=== PATIENT | female | born 1950 | race Caucasian/White ===

== ENCOUNTER 2019-11-12 20:52 | Inpatient (IN) | payer MEDICARE ==
[~2019-11-12] VITALS: Ht 152.4 cm; Wt 61.2 kg
[~2019-11-12 20:52] MED LIST: CLON0.252 PO; FOLI1TAB16 PO; MULT1CAP34 PO; THIA100T74 PO
[2019-11-12 22:37] VITALS: BP 97/58
[2019-11-12 23:00] VITALS: BP 97/88
--- NOTE | 2019-11-12 23:00 | NUR ---
WOOD MODEL MAKERHYDRATE THICKENER OPERATOR NOTES RECEIVED PATIENT DIRECT ADMIT FROM [facility], ALERT AND ORIENTED X 1. VERBALLY RESPONSIVE, CONFUSED AND UNCOOPERATIVE. BREATHING REGULAR AND UNLABORED ON ROOM AIR. RIGHT WRIST G22 IV LINE INTACT AND PATENT, FLUSHING WELL WITH NO BLEEDING OR S/S OF INFILTRATION NOTED. ATTACHED TO AMMONIA REFRIGERATION TECHNICIAN WITH NSR WITH PAC'S AT 92bpm. BODY ASSESSMENT DONE, SEEN WITH SACRAL REDNESS, RIGHT FOREHEAD LACERATION WITH STITCHES, MULTIPLE SCABS ON LEFT UPPER AND LOWER EXTREMITIES, DRY SCABS AND SKIN GROWTH ON UPPER BACK. PHOTO TAKEN, ATTACHED TO CHART. VITAL SIGNS AND BELONGINGS CHECKED BY TECHNICAL DELIVERY MANAGER. NO S/S OF PAIN/DISCOMFORT NOTED AT THIS TIME. BED LOW AND LOCKED ON SEMI FOWLERS POSITION. CALL LIGHT IN REACH. WILL CONTINUE TO MONITOR.
[2019-11-12] MEDS ORDERED: LORAZEPAM INJ 2 MG/ML VIAL IV PRN (23:30)
[2019-11-12] MEDS ORDERED: ONDANSETRON HCL/PF 4 MG/2 ML VIAL IVP PRN (23:30)
[2019-11-12] MEDS ORDERED: TEMAZEPAM 15 MG CAPSULE PO PRN (23:30)
[2019-11-12] MEDS ORDERED: MAGNESIUM HYDROXIDE 30 ML UDC PO PRN (23:30)
[2019-11-12] MEDS ORDERED: Z GUARD REMEDY 2 OZ OINT TP PRN (23:30)
[2019-11-12] MEDS ORDERED: MAG HYDROX/AL HYDROX/SIMETH 30 ML UDC PO PRN (23:30)
[2019-11-12] MEDS ORDERED: Thiamine 100 MG in IV D5W 50 ML IV SCH (23:30)
[2019-11-12] MEDS ORDERED: ACETAMINOPHEN 325 MG TABLET PO PRN (23:30)
[2019-11-12] MEDS ORDERED: LEVETIRACETAM (500MG) 500 MG in IV NS 0.9% 100 ML IV SCH (23:30)
[2019-11-12] MEDS ORDERED: Thiamine 100 MG/ML VIAL ONE (23:33)
[2019-11-12] MEDS ORDERED: LEVETIRACETAM (500MG) 500 MG/5 ML VIAL IV ONE (23:34)
[2019-11-12] MEDS: IV NS 0.9% 1,000 ML IV PRN (23:40)
[2019-11-13] VITALS: BP_SYST 114; BP_SYST 125; BP_DIAS 65; BP_DIAS 66; BP_DIAS 68
--- NOTE | 2019-11-13 02:00 | NUR ---
SUBSCRIPTION AGENT NOTES PER NEW PROTOCOL PATIENT NEEDS TO BE RULED OUT FOR COVID19. ARABELLA GALLOWAY NOTIFIED WITH ORDERS TO DO COVID PCR SWAB AND TRANSFER PATIENT TO [facility], NOTED AND CARRIED OUT.
--- NOTE | 2019-11-13 02:45 | NUR ---
COLLECTIONS PROFESSIONAL NOTES MRSA AND COVID19 SWAB DONE, PICKED UP BY DETECTIVE [facility]
--- NOTE | 2019-11-13 03:10 | NUR ---
DECAL TRANSFERRER NOTES PATIENT TRANSFERRED TO [facility] ROOM 104 REPORT GIVEN TO HIWOT GARCIA AT [facility]. PATIENT ALERT AND ORIENTED X 1. AFEBRILE WITH NO S/S OF DISTRESS OBSERVED. TRANSFERRED VIA ACLS.
--- NOTE | 2019-11-13 03:15 | NUR ---
RECEIVED BEDSIDE REPORT. PATIENT NOT SHOWING ANY SIGNS OF ANY DISTRESS. ON ROOM AIR SATURATING AT 95% WITH NO COMPLIANT OF ANY SOB. PATIENT IS ALERT TO SELF AND CAN ONLY RECALL THAT SHE IS IN THE HOSPITAL. LACERATION ON FOREHEAD INTACT WITH STITCHING AND NO SIGNS OF ANY BLEEDING. PATIENT HAS RT WRIST @22 GAUGE PATENT. ALL SAFETY PRECAUTIONS APPLIED, CALL LIGHT WITHIN REACH, AND SEIZURE PRECAUTIONS. WILL CONTINUE TO MONITOR PATIENT.
[2019-11-13 04:00] VITALS: BP 120/77
[2019-11-13 07:27] LABS: BASOPHILS % (AUTO) 0.4 % (0.0-2.0); HEMATOCRIT 42 % (33-45); HEMOGLOBIN 14.2 g/dL (11.5-14.8); LYMPHOCYTES # (AUTO) 1.5 /CMM (0.8-4.8); LYMPHOCYTES % (AUTO) 20.3 % (20.0-44.0); MEAN CORPUSCULAR HGB CONC 34 g/dl (31.0-36.0); MEAN CORPUSCULAR VOLUME 94 fL (82-100); MONOCYTES # (AUTO) 0.8 /CMM (0.1-1.30); MONOCYTES % (AUTO) 10.9 % (2.0-12.0); NEUTROPHILS # (AUTO) 5.1 /CMM (1.8-8.9); NEUTROPHILS % (AUTO) 68.4 % (43.0-81.0); PLATELET COUNT (AUTO) 229 /CMM (150-450); WHITE BLOOD COUNT (AUTO) 7.4 K/uL (4.3-11.0)
[2019-11-13 07:29] LABS: CALCIUM, SERUM 8.8 mg/dL (8.5-10.1); CREATININE 0.5 mg/dL (0.6-1.3); PHOSPHORUS 2.8 mg/dL (2.5-4.9); POTASSIUM 3.1 mmol/L (3.5-5.1)
[2019-11-13 07:34] LABS: THYROID STIMULATING HORMONE 1.153 uIU/mL (0.358-3.74)
[2019-11-13] MEDS: PANTOPRAZOLE 40 MG TABLET.DR PO SCH (07:35)
--- NOTE | 2019-11-13 07:54 | NUR ---
[facility] RN NOTES RECEIVED PT IS SLEEPING IN BED. ALERT AND ORIENTED X2. NO SHOWING ANY DISTRESS. R WRIST #22 NS @75 ML/HR IS RUNNING WELL AND INTACT. LACERATION ON FOREHEAD IS INTACT WITH STITCHING AND NO SIGN OF BLEEDING ALL SAFETY PRECAUTIONS ARE IMPLEMENTED. BED IS IN THE LOWEST POSITION AND RAILS ARE UP X2. CALL LIGHT WITHIN THE REACH. WILL CONTINUE TO MONITOR.
--- NOTE | 2019-11-13 07:58 | NUR ---
[facility] RN NOTES PT'S POTASSIUM LEVEL IS DROPPING FROM 3.2 11/12/19 TO 3/ INFORMED DR JAVIER OGDEN. WILL FOLLOW UP IF ANY ORDER NEED IT.
[2019-11-13 08:00] VITALS: BP 108/69
[2019-11-13 08:46] LABS: MAGNESIUM 2.1 mg/dL (1.8-2.4)
[2019-11-13] MEDS ORDERED: LEVE500T9 PO (09:37)
[2019-11-13] MEDS ORDERED: MULT-447 PO (09:37)
[2019-11-13] MEDS ORDERED: DIVA125C5 PO (09:37)
[2019-11-13] MEDS ORDERED: AMLO10TA7 PO (09:37)
[2019-11-13] MEDS ORDERED: THIA100T70 PO (09:37)
[2019-11-13] MEDS: POTASSIUM CL. PREMIX PERIPHER. 50 ML IV SCH ×4 (11:21→14:05)
--- NOTE | 2019-11-13 11:23 | NUR ---
[facility] RN NOTES URINE SAMPLE ORDERED COLLECTED AND INFORMED THE LAB
--- NOTE | 2019-11-13 11:41 | NUR ---
[facility] RN NOTES DR JAVIER OGDEN ASKED TO PUT ON ORDER FOR POTASSIUM 10 MEQ /4 BAGS
[2019-11-13] MEDS: MULTIVITAMINS,THERAGRAN 1 UDTAB TABLET PO SCH (11:49)
--- NOTE | 2019-11-13 11:49 | NUR ---
[facility] RN NOTES CALLED PHARMACY [facility] FOUND IV IN THE CASSETTE. PHARMACY WILL VERIFY AND LET ME KNOW
[2019-11-13] MEDS: LEVETIRACETAM (250 MG) 250 MG TABLET PO SCH ×2 (11:59→21:37)
[2019-11-13 12:00] VITALS: BP 118/76
[2019-11-13 12:32] LABS: APPEARANCE,URINE CLOUDY (CLEAR); BILIRUBIN,URINE NEGATIVE (NEGATIVE); BLOOD, URINE TRACE-INTA Ery/uL (NEGATIVE); COLOR,URINE DARK YELLO (YELLOW); KETONES,URINE TRACE (NEGATIVE); LEUKOCYTE ESTERASE ,URINE MODERATE (NEGATIVE); NITRITE, URINE NEGATIVE (NEGATIVE); PH,URINE 6.5 (5.0-8.0); PROTEIN,URINE NEGATIVE (NEGATIVE); UGLUCOSE NEGATIVE (NEGATIVE)
[2019-11-13 13:02] LABS: BACTERIA,URINE Many /HPF (None Seen); SQUAMOUS EPITHELIAL CELL,UR Few /HPF (None Seen); WBC,URINE 51-80 /HPF (0-3)
[2019-11-13] MEDS: DIVALPROEX SODIUM 125 MG CAP.SPRINK PO SCH ×2 (13:28→17:12)
[2019-11-13] MEDS: SERTRALINE HCL 25 MG TABLET PO SCH (13:47)
[2019-11-13 16:00] VITALS: BP 121/82
[2019-11-13] MEDS: THIAMINE HCL 100 MG TABLET PO SCH (17:12)
--- NOTE | 2019-11-13 17:30 | NUR ---
[facility] RN NOTES PT PULLED HER IV TWICE. MIDLINE NURSE PUT THE LEFT FOREARM 22 G . NOTED SWOLLEN WRIST INFORMED JAVIER OGDEN FINANCIAL MARKET DEALER. WAITING FOR THE RESPONG TO ORDER X RAY MIGHT BE BROKEN DUE TO FALL
--- NOTE | 2019-11-13 18:17 | NUR ---
[facility] CLOSING RN NOTES PT IS IN BED . ALERT AND ORIENTED X2. NO SHOWING ANY DISTRESS. R WRIST #22 NS DC DUE TO PULLING IT . MIDLINE NURSE PU THE NEW IV ON THE LEFT FOREARM ANS IS RUNNING WELL AND INTACT. LACERATION ON FOREHEAD IS INTACT WITH STITCHING AND NO SIGN OF BLEEDING ALL PT NEEDS WERE MET AND ALL MEDS ARE TGIVEN . PT IS DRY AND COMFORTABLE. ALL SAFETY PRECAUTIONS ARE IMPLEMENTED. BED IS IN THE LOWEST POSITION AND RAILS ARE UP X2. CALL LIGHT WITHIN THE REACH. WILL ENDORSE TO CABLEMAN FOR [facility]
--- NOTE | 2019-11-13 19:10 | NUR ---
RN OPENING NOTES RECEIVED PT IS IN BED WITH HOB IN SEMI-FOWLERS POSITION. PT A/O X2, ON ROOM AIR WITH NO SIGNS OF RESPIRATORY DISTRESS. IV TO LFA PATENT, INTACT AND FLUSHING WELL. NS INFUSING AT 75 ML/HR. RT FOREHEAD LACERATION DRY AND INTACT WITH STITCHING AND NO SIGN OF BLEEDING. DENIES PAIN OR DISCOMFORT. BED ALARM ON, SAFETY MEASURES IN PLACE, SIDE RAILS UP X 2, BED IS IN THE LOWEST POSITION WILL CONTINUE TO MONITOR PT.
[2019-11-13] MEDS: IV NS 0.9% 1,000 ML IV PRN (19:12)
[2019-11-13 20:00] VITALS: BP 145/79
[2019-11-14] VITALS: BP 138/75
[2019-11-14 04:00] VITALS: BP 141/67
[2019-11-14 06:15] LABS: BASOPHILS # (AUTO) 0.1 /CMM (0.0-0.2); BASOPHILS % (AUTO) 1.2 % (0.0-2.0); EOSINOPHILS % (AUTO) 0.6 % (0.0-6.0); HEMATOCRIT 44 % (33-45); HEMOGLOBIN 14.7 g/dL (11.5-14.8); LYMPHOCYTES % (AUTO) 29.8 % (20.0-44.0); MEAN CORPUSCULAR HGB CONC 33 g/dl (31.0-36.0); MEAN CORPUSCULAR VOLUME 94 fL (82-100); MONOCYTES # (AUTO) 0.7 /CMM (0.1-1.30); MONOCYTES % (AUTO) 10.5 % (2.0-12.0); NEUTROPHILS # (AUTO) 3.9 /CMM (1.8-8.9); NEUTROPHILS % (AUTO) 57.9 % (43.0-81.0); PLATELET COUNT (AUTO) 196 /CMM (150-450); RED BLOOD CELL COUNT(AUTO) 4.69 MIL/uL (4.0-5.2); WHITE BLOOD COUNT (AUTO) 6.7 K/uL (4.3-11.0)
--- NOTE | 2019-11-14 06:50 | NUR ---
RN CLOSING NOTE PT IN BED RESTING IN SEMI-FOWLERS ON ROOM AIR WITH NO SIGNS OF RESPIRATORY DISTRESS. IV TO LEFT HAND PATENT, INTACT AND FLUSHING WELL. RT FOREHEAD LACERATION DRY AND INTACT WITH STITCHING AND NO SIGN OF BLEEDING. PT HAS GOOD PO INTAKE. PT CLEANED, ALL NEEDS MET AND IS COVID NEGATIVE. CURRENTLY AWAITING ROOM TO BE TRANSFERRED. BED ALARM ON, SAFETY MEASURES IN PLACE, SIDE RAILS UP X 3, BED IS IN THE LOWEST POSITION. ENDORSED TO AM RN FOR RICKY.
[2019-11-14 07:00] LABS: CALCIUM, SERUM 8.9 mg/dL (8.5-10.1); CREATININE 0.4 mg/dL (0.6-1.3); PHOSPHORUS 3.1 mg/dL (2.5-4.9); POTASSIUM 3.6 mmol/L (3.5-5.1)
[2019-11-14] MEDS: CEFTRIAXONE 1 G in IV D5W 50 ML IV SCH (07:39)
[2019-11-14] MEDS: PANTOPRAZOLE 40 MG TABLET.DR PO SCH ×2 (07:39→08:31)
[2019-11-14 08:00] VITALS: BP 128/89
--- NOTE | 2019-11-14 08:00 | NUR ---
[facility] opening RN NOTES RECEIVED PT IN BED. ALERT AND ORIENTED X2. NO SHOWING ANY DISTRESS. L FOREARM #22 NS @75 ML/HR IS RUNNING WELL AND INTACT. LACERATION ON FOREHEAD IS INTACT WITH STITCHING AND NO SIGN OF BLEEDING ALL SAFETY PRECAUTIONS ARE IMPLEMENTED. BED IS IN THE LOWEST POSITION AND RAILS ARE UP X2. CALL LIGHT WITHIN THE REACH. WILL CONTINUE TO MONITOR.
--- NOTE | 2019-11-14 08:21 | NUR ---
WOUND CARE CONSULT: SEEN PATIENT AT BEDSIDE.PATIENT PRESENTS RT SIDE FOREHEAD LACERATION DUE TO FALL , SACRAL \BUTTOCKS IASD ,DUE TO WITH INCONTINENCE,ALL SKIN ISSUES PRESENT ON ADMISSION, CURRENT TAMIKO SCALE IS 16 , ISOFLEX GERARD BED TO BE PLACED, ALL SKIN RECOMMENDATION DISCUSSED WITH NURSING STAFF, IN AGREEMENT WITH PLAN OF CARE, WILL SEE PRN Addendum: 11/14/19 at 0830 by MAGDALENA PANIAGUA RN Amended: Links added.
[2019-11-14] MEDS: MULTIVITAMINS,THERAGRAN 1 UDTAB TABLET PO SCH (08:31)
[2019-11-14] MEDS: SERTRALINE HCL 25 MG TABLET PO SCH (08:31)
[2019-11-14] MEDS: LEVETIRACETAM (250 MG) 250 MG TABLET PO SCH ×2 (08:31→21:23)
[2019-11-14] MEDS: DIVALPROEX SODIUM 125 MG CAP.SPRINK PO SCH ×3 (08:32→17:18)
[2019-11-14 12:00] VITALS: BP 144/79
--- NOTE | 2019-11-14 12:55 | NUR ---
Patient transferred room 310-1 from [facility], received report by Mikaela MI. Patient confused and attempting out of bed without asking help, bed alarm is on. Will continue to monitor for safety.
--- NOTE | 2019-11-14 13:04 | NUR ---
[facility] RN NOTES GAVE REPORT TO GEOFF. TO TRANSFER PT TO [address] [place] [address] [address] [place]
--- NOTE | 2019-11-14 13:05 | NUR ---
[facility] RN NOTES TRANSFERRED PT . VS WNL. PT IS IN STABLE CONDITION. SAFETY ,MEASUREMENTS ARE IMPLEMENTED. BED IN THE LOWEST POSITION. LOCKED . SEIZURE AND FALL PRECAUTIONS ARE TAKEN INTO CONSIDERATION. PT IS STABLE AND COMFORTABLE IN 310 BED 1 .
[2019-11-14 16:00] VITALS: BP 146/80
[2019-11-14] MEDS: THIAMINE HCL 100 MG TABLET PO SCH (17:18)
--- NOTE | 2019-11-14 17:50 | NUR ---
Received MRSA positive result from [facility].
--- NOTE | 2019-11-14 18:20 | NUR ---
RN Closing note Patient sitting edge of the bed, refusing lay on the bed, denies pain or distress. Patient stated "I want to walk around!" and started pacing in room, does not listening staff. Refused IV fluid, pulled IV site, but took all scheduled medications. Respiratory even and unlabored on room air, skin is warm to touch, keep clean/dry, intact stitches site on right forehead. keep bed in locked with elevated and bed alarm on at all the times. Call light within reach, will endorse night clerk.
[2019-11-14 20:00] VITALS: BP 157/95
--- NOTE | 2019-11-14 20:00 | NUR ---
SENIOR SQL DATABASE DEVELOPER NOTE: Patient refused IV fluids 0.9%NS. Educated patient of risk and benefit of refusing IV fluids but patient still refused. Encouraged patient to drink water. Will continue to monitor.
--- NOTE | 2019-11-14 20:00 | NUR ---
GEODETIC SURVEYOR TECHNOLOGIST NOTE: Received patient from morning nurse. Patient in bed awake and alert. On room air. No SOB. Breathing even and unlabored. Patient denies pain or discomfort. Noted left wrist 22g. Flushes well, patent, no redness, or infiltration. Safety precaution in place, bed in lowest level, brakes are on, side rails x2 are up, and call light is within reach. Will continue to monitor.
[2019-11-14] MEDS: MUPIROCIN OINT 2% 22 GM TUBE NS SCH (21:23)
--- NOTE | 2019-11-15 | NUR ---
MAINTENANCE PORTER NOTE: Offered patient IV fluid 0.9%NS. Patient still refused. Encouraged patient to drink water. Will keep monitoring.
[2019-11-15 04:00] VITALS: BP 153/76
--- NOTE | 2019-11-15 06:39 | NUR ---
DRILL RIG OPERATOR HELPER CLOSING NOTE: Patient in bed awake and alert. Patient denies pain or discomfort at this time. Patient breathing well. No SOB, breathing unlabored and equal. Patient is in no signs of distress. Safety precaution in place. Bed in lowest level, side rails x 2 are up, brakes are on, and call light is within reach. Will endorse to next shift.
[2019-11-15] MEDS: CEFTRIAXONE 1 G in IV D5W 50 ML IV SCH (06:54)
[2019-11-15 07:33] LABS: BASOPHILS % (AUTO) 0.4 % (0.0-2.0); EOSINOPHILS % (AUTO) 0.8 % (0.0-6.0); HEMATOCRIT 43 % (33-45); HEMOGLOBIN 14.3 g/dL (11.5-14.8); LYMPHOCYTES # (AUTO) 1.8 /CMM (0.8-4.8); LYMPHOCYTES % (AUTO) 26.4 % (20.0-44.0); MEAN CORPUSCULAR HGB CONC 34 g/dl (31.0-36.0); MEAN CORPUSCULAR VOLUME 94 fL (82-100); MONOCYTES # (AUTO) 0.6 /CMM (0.1-1.30); NEUTROPHILS # (AUTO) 4.4 /CMM (1.8-8.9); NEUTROPHILS % (AUTO) 63.4 % (43.0-81.0); PLATELET COUNT (AUTO) 189 /CMM (150-450); RED BLOOD CELL COUNT(AUTO) 4.53 MIL/uL (4.0-5.2); WHITE BLOOD COUNT (AUTO) 6.9 K/uL (4.3-11.0)
[2019-11-15 08:00] VITALS: BP 148/90
[2019-11-15 08:01] VITALS: BP 148/90
[2019-11-15] MEDS: DIVALPROEX SODIUM 125 MG CAP.SPRINK PO SCH ×2 (08:31→12:48)
[2019-11-15] MEDS: LEVETIRACETAM (250 MG) 250 MG TABLET PO SCH (08:31)
[2019-11-15] MEDS: MULTIVITAMINS,THERAGRAN 1 UDTAB TABLET PO SCH (08:31)
[2019-11-15] MEDS: MUPIROCIN OINT 2% 22 GM TUBE NS SCH (08:32)
[2019-11-15 08:48] LABS: CALCIUM, SERUM 9.2 mg/dL (8.5-10.1); CREATININE 0.4 mg/dL (0.6-1.3); PHOSPHORUS 4.1 mg/dL (2.5-4.9); POTASSIUM 3.3 mmol/L (3.5-5.1)
[2019-11-15] MEDS ORDERED: SERTRALINE HCL 25 MG TABLET PO SCH (09:00)
[2019-11-15] MEDS ORDERED: CEPH-570 PO (12:03)
[2019-11-15] MEDS ORDERED: SERT25TA5 PO (12:11)
[2019-11-15] MEDS ORDERED: POTASSIUM CL. PREMIX PERIPHER. 50 ML IV SCH (14:00)
[2019-11-15] MEDS ORDERED: POTASSIUM CHLORIDE 20 MEQ TAB.PRT.SR PO ONE (14:30)
--- NOTE | 2019-11-15 15:17 | NUR ---
POST DOCTORAL FELLOW NOTE PT DISCHARGED TO [facility]. PT IS A/OX3 W/ EPISODES OF CONFUSION. AFEBRILE. WAS ON PRIZER HAND, NSR. STABLE ON RA. RESPIRATIONS ARE EVEN AND UNLABORED, NOT IN ANY ACUTE DISTRESS NOTED. DENIES ANY PAIN, SOB, N/V. ABDOMEN IS SOFT AND NONDISTENDED, BOWEL SOUNDS ARE PRESENT IN ALL 4 QUADRANTS UPON AUSCULTATION. VOIDS. CONTINENT. STITCHES INTACT TO RIGHT FOREHEAD, NO S/SX OF INFECTION. PT REFUSED PHOTOS TO BE TAKEN. EXPLAINED THE IMPORTANCE OF TAKING PICTURES AND PT STATED "NO, IM FINE. I JUST WANT TO LEAVE." SKIN IS INTACT, SCABS NOTED TO BACK AND LEG, KEPT CLEAN AND DRY. ALL BELONGINGS SENT WITH PT. EXPLAINED DISCHARGE PAPERWORK AND VERBAL AND WRITTEN UNDERSTANDING. BEDSIDE ENDORSEMENT GIVEN TO EMT PERSONNEL. PT LEFT IN MEDICALLY STABLE CONDITION. Addendum: 11/15/19 at 1522 by EDUARDA MOSS RN PT ALSO REFUSED POTASSIUM REPLACEMENT. INITIALLY REFUSED IV. CALLED PHARMACY TO CHANGE TO PO. PT REFUSED PO AND STATED "I DONT NEED IT. IM FINE. IM READY TO GO." EXPLAINED THE IMPORTANCE, PT STILL NOTED WITH NONCOMPLIANCE.
== END 2019-11-15 15:15 | disposition home health service (06) | DRG 689 ==
LOC: TELE 22:30 → TELE1 11-13 03:04 → TELE-TD 11-13 20:30 → TELE1 11-14 07:29 → TELE 11-14 12:35
PROVIDERS: ADMIT Nurse Practitioner Acute Care; ATTEND Nurse Practitioner Acute Care
PROC: 05HY33Z Insertion of Infusion Device into Upper Vein, Percutaneous Approach (ICD-10-PCS; principal; 2019-11-13)
DX: N39.0 Urinary tract infection, site not specified (principal); G93.41 Metabolic encephalopathy; E44.0 Moderate protein-calorie malnutrition; E87.1 Hypo-osmolality and hyponatremia; F33.1 Major depressive disorder, recurrent, moderate; F03.91 Unspecified dementia, unspecified severity, with behavioral disturbance; F10.288 Alcohol dependence with other alcohol-induced disorder; G40.89 Other seizures; D72.829 Elevated white blood cell count, unspecified; E87.6 Hypokalemia; I10 Essential (primary) hypertension; F12.90 Cannabis use, unspecified, uncomplicated; S01.81XA Laceration without foreign body of other part of head, initial encounter; W19.XXXA Unspecified fall, initial encounter; Y93.9 Activity, unspecified; R40.2362 Coma scale, best motor response, obeys commands, at arrival to emergency department; R40.2142 Coma scale, eyes open, spontaneous, at arrival to emergency department; R40.2242 Coma scale, best verbal response, confused conversation, at arrival to emergency department; K70.30 Alcoholic cirrhosis of liver without ascites; F41.9 Anxiety disorder, unspecified; R74.0 Nonspecific elevation of levels of transaminase and lactic acid dehydrogenase [LDH]; M62.50 Muscle wasting and atrophy, not elsewhere classified, unspecified site; Y92.89 Other specified places as the place of occurrence of the external cause; Z22.322 Carrier or suspected carrier of Methicillin resistant Staphylococcus aureus; Y90.9 Presence of alcohol in blood, level not specified; Z91.14 Patient's other noncompliance with medication regimen; B95.1 Streptococcus, group B, as the cause of diseases classified elsewhere; Z68.26 Body mass index [BMI] 26.0-26.9, adult
CPT/HCPCS: 36415; 73110; 80048-TC; 80061-TC; 80164-TC; 81000-TC; 83735-TC; 84100-TC; 84443-TC; 85025-TC; 87081-TC; 87086-TC; 97110-TC; 97116-TC; 97530-TC; G0378; J0696; J1953; J3411; J3480; J7030; J7060; U0003-CS